=== PATIENT | female | born 1975 | race Caucasian/White ===

== ENCOUNTER 2018-08-22 00:44 | Outpatient (CLI) | payer MEDICAID, SELFPAY ==
--- NOTE | 2018-08-22 09:00 | DI.US_ITS ---
SYMPTOMS/DIAGNOSIS: LEFT BREAST PAIN, FIBROCYSTIC CHANGES, N64.4 MAMMOGRAM AND LEFT BREAST ULTRASOUND AND ADDITIONAL MAMMOGRAPHIC VIEWS, LEFT BREAST: Mammograms were interpreted according to the usual protocol including computer analysis with CAD system, tomosynthesis and C view imaging. Additional images are interpreted according to the usual protocol including tomosynthesis and 2D imaging. Mammography was performed, including additional mammographic view, left breast. The patient reports left retroareolar pain/discomfort. The breasts are of moderate density with fairly symmetrical distribution of fibroglandular tissue. There is a lobulated, well-circumscribed retroareolar mass on the left measuring about 9 mm in diameter. Ultrasound examination of the retroareolar portion of the left breast shows an approximately 7 mm in greatest diameter group of cysts or septated cyst corresponding to the mammographically identified abnormality. No solid mass identified. No intralesional vascular flow on Doppler evaluation. CONCLUSION: Retroareolar breast septated cyst or group of cysts on the left as described above. No additional significant mammographic findings. No evidence of malignancy. Routine screening examinations are suggested at yearly intervals in this age group according to the ACS/ACR guidelines. Category 2, breast density category B. MQSA ASSESSMENT OF FINDINGS: Negative with benign findings. Category 2. Patient will receive a letter notifying them of these results. BI-RADS category B. There are scattered areas of fibroglandular density.
== END 2018-08-22 01:04 ==
PROVIDERS: Visit Provider Nurse Practitioner Family
DX: N64.4 Mastodynia (principal); N60.12 Diffuse cystic mastopathy of left breast
CPT/HCPCS: 76642; 77062; 77066; G0279

== ENCOUNTER 2019-12-18 10:56 | Outpatient (CLI) | payer MEDICAID, SELFPAY ==
[2019-12-20 13:40] LABS: TB Interpretation Negative (Negative); TB1 Ag minus Nil 0.01 IU/ml
== END 2019-12-18 11:16 ==
PROVIDERS: PCP Nurse Practitioner; Visit Provider Nurse Practitioner
DX: Z11.1 Encounter for screening for respiratory tuberculosis (principal)
CPT/HCPCS: 36415; 86480

== ENCOUNTER 2020-02-06 02:53 | Outpatient (CLI) | payer MEDICAID, SELFPAY ==
[2020-02-07 09:47] LABS: HBs Antibody, Quant 37.2 mIU/mL (See Note); Hepatitis B Surface Ab Positive (See Note)
[2020-02-07 12:38] LABS: Measles IgG Antibody Positive (See Note); Mumps Antibody IgG Negative (See Note); Rubella IgG Ab (UVM) Positive (See Note); Varicella IgG Antibody Positive (See Note)
== END 2020-02-06 03:13 ==
PROVIDERS: PCP Nurse Practitioner; Visit Provider Nurse Practitioner
DX: Z11.59 Encounter for screening for other viral diseases (principal); Z01.84 Encounter for antibody response examination
CPT/HCPCS: 36415; 86706; 86787; 86735; 86762; 86765

== ENCOUNTER 2020-04-13 11:55 | Outpatient (REF) | payer MEDICAID, SELFPAY ==
--- NOTE | 2020-04-13 11:15 | PAPFT_PTH ---
PATIENT: Alexandra Carrera LOC: [facility] U#:[id number] AGE/SX: 44/F ROOM: RE04/13/[address]: DORA Calderon : 1975 BED: DIS: 04/13/2020 SPEC #: [id number] RECD: 04/13/20 13:01 STATUS: NEGIN REAlexandrea #: [id number] EDDIE: 04/13/20 11:[address]: Grace Lane DEPT: [facility] Cytology RECD BY: Soraya Avitia ENTERED: 04/13/20 13:02 SP TYPE: PAPFT OTHR DR: Zenaida Anne Tissues: 1 - CX/ENDOCX FOR PAP SMEARS Procedures: PAP THIN PREP/UVM Screening HPV DNA PROBE Comments: [id number]
== END 2020-04-13 12:15 ==
LOC: LBN 11:55
PROVIDERS: PCP Nurse Practitioner; Visit Provider Nurse Practitioner Family
DX: Z12.4 Encounter for screening for malignant neoplasm of cervix (principal); Z11.51 Encounter for screening for human papillomavirus (HPV); Z97.5 Presence of (intrauterine) contraceptive device; N88.8 Other specified noninflammatory disorders of cervix uteri
CPT/HCPCS: 88142; 87624

== ENCOUNTER 2020-05-05 07:34 | Outpatient (CLI) | payer MEDICAID, SELFPAY ==
--- NOTE | 2020-05-05 10:07 | DI.MAMMO_ITS ---
EXAM: MG MAMMO DIAGNOSTIC BI CLINICAL HISTORY: R breast pain and red lesion present for 8 months N64.4 MASTODYNIA TECHNIQUE: Mammograms were interpreted according to the usual protocol including computer analysis w [employer] system, tomosynthesis and C-view imaging. COMPARISON: FINDINGS: Breasts are of moderate density with fairly symmetrical distribution of fibroglandular tissue. No do minant mass or clumped microcalcification is identified in either breast. Current examination is com pared with previous examinations including August 2018 and there has been no gross interval change in appearance in comparison with the prior studies. IMPRESSION: No specific evidence of malignancy at this time. Routine screening examinations are suggested yearly intervals in this age group according to the ACR. BI-RADS Cat 1 - Negative Breast Density - Category B - Scattered areas of fibroglandular density
== END 2020-05-05 07:54 ==
PROVIDERS: Visit Provider Nurse Practitioner Family
DX: N64.4 Mastodynia (principal); Z12.31 Encounter for screening mammogram for malignant neoplasm of breast
CPT/HCPCS: 77062; 77066; G0279

== ENCOUNTER 2020-05-19 13:59 | Outpatient (REF) | payer MEDICAID, SELFPAY ==
[2020-05-22 15:46] LABS: SARS-CoV-2 RNA Undetected (Undetected); SARS-CoV-2 Specimen Source Nasopharynx
== END 2020-05-19 14:19 ==
LOC: NCHCN 13:59
PROVIDERS: Visit Provider Nurse Practitioner
DX: Z11.59 Encounter for screening for other viral diseases (principal)
CPT/HCPCS: U0003

== ENCOUNTER 2020-09-28 18:18 | Outpatient (REF) | payer MEDICAID, SELFPAY ==
[2020-09-30 10:06] LABS: COVID-19 RT-PCR Result NEGATIVE (Negative)
== END 2020-09-28 18:38 ==
LOC: NCHCN 18:18
PROVIDERS: PCP Nurse Practitioner Family; Visit Provider Nurse Practitioner Family
DX: Z11.59 Encounter for screening for other viral diseases (principal)
CPT/HCPCS: U0003

== ENCOUNTER 2020-10-05 18:09 | Outpatient (REF) | payer MEDICAID, SELFPAY ==
[2020-10-07 09:39] LABS: COVID-19 RT-PCR Result NEGATIVE (Negative)
== END 2020-10-05 18:29 ==
LOC: NCHCN 18:09
PROVIDERS: PCP Nurse Practitioner Family; Visit Provider Nurse Practitioner Family
DX: Z11.59 Encounter for screening for other viral diseases (principal)
CPT/HCPCS: U0003

== ENCOUNTER 2021-12-28 18:43 | Outpatient (REF) | payer MEDICAID, SELFPAY ==
[2021-12-29 15:02] LABS: Chlamydia Result Negative (Negative); GC Result Negative (Negative)
== END 2021-12-28 18:44 | disposition home or self-care (01) ==
LOC: LBN 18:43
PROVIDERS: PCP Nurse Practitioner Family; Visit Provider Nurse Practitioner Family
DX: Z11.3 Encounter for screening for infections with a predominantly sexual mode of transmission (principal)
CPT/HCPCS: 87491; 87591

== ENCOUNTER → 2022-03-10 01:38 | Outpatient (CLI) | payer MEDICAID, SELFPAY ==
--- NOTE | 2022-03-10 07:45 | DI.MAMMO_ITS ---
Exam(s) MAMMO SCREENING EXAM: MAMMO SCREENING CLINICAL HISTORY: screening. TECHNIQUE: Bilateral full field digital CC and MLO mammographic images were obtained with 3D tomosyn thesis and utilizing computer aided detection (CAD). COMPARISON: Prior mammograms were reviewed, the most recent being May 2020. Breast ultrasound pe rformed 08/22/2018 was reviewed.. FINDINGS: There are no CAD designations. There has been no significant change in the appearance and distribution of the fibroglandular tissue. Asymmetric density in the central left breast is unchanged from prior mammograms. There are no new spiculated masses nor malignant appearing microcalcification groups. There is no significant architectural distortion nor skin thickening-retraction. IMPRESSION: No radiographic evidence of malignancy. BI-RADS Category 1 - Negative Breast Density - Category B - Scattered areas of fibroglandular density Breast density Category C or D implies that the patient has dense breast tissue. Dense breast tissue can make it harder to find cancer on a mammogram. Dense breast tissue is also associated with an incr eased risk of breast cancer. This information about the result of the mammogram report was provided to the patient to raise their awareness. Use this report when you speak with the patient about their risks for breast cancer, which includes their family history. At that time, you may recommend additional screening tests (Ultrasoun d or MRI) as these tests may add significant information. A negative radiographic report should not delay biopsy if a dominant or clinically suspicious mass is present. Up to ten percent of cancers are not identified on mammography. A negative report may reinforce clinical impression. Adenosis and dense breasts may obscure an underlying neoplasm. False positive reports average 6 to 10%. Patient will receive a letter notifying them of these results.
== END ==
PROVIDERS: Visit Provider Nurse Practitioner Family
DX: Z12.31 Encounter for screening mammogram for malignant neoplasm of breast (principal)
CPT/HCPCS: 77063; 77067

== ENCOUNTER 2022-03-18 01:24 | Outpatient (CLI) | payer MEDICAID, SELFPAY ==
[2022-03-21 10:04] LABS: HBs Antibody, Quant 33.9 mIU/mL (See Note); Hepatitis B Surface Ab Positive (See Note)
[2022-03-21 10:52] LABS: Measles IgG Antibody Positive (See Note); Mumps Antibody IgG Negative (See Note); Varicella IgG Antibody Positive (See Note)
[2022-03-21 10:55] LABS: Rubella IgG Ab (UVM) Positive (See Note)
== END 2022-03-18 01:25 | disposition home or self-care (01) ==
LOC: LBO 01:25
PROVIDERS: Visit Provider Nurse Practitioner Family
DX: Z11.59 Encounter for screening for other viral diseases (principal); Z01.84 Encounter for antibody response examination; Z11.1 Encounter for screening for respiratory tuberculosis; Z00.00 Encounter for general adult medical examination without abnormal findings
CPT/HCPCS: 36415; 86706; 86787; 86480; 86735; 86762; 86765

== ENCOUNTER 2022-03-25 01:56 | Outpatient (CLI) | payer MEDICAID, SELFPAY ==
[2022-03-28 14:34] LABS: TB Interpretation Negative (Negative); TB1 Ag minus Nil 0.01 IU/ml
== END 2022-03-25 01:57 | disposition home or self-care (01) ==
LOC: LBO 01:56
PROVIDERS: Visit Provider Nurse Practitioner Family
DX: Z00.00 Encounter for general adult medical examination without abnormal findings (principal); Z11.1 Encounter for screening for respiratory tuberculosis
CPT/HCPCS: 86480

== ENCOUNTER 2022-11-16 19:02 | Emergency (ER) | payer MEDICAID, SELFPAY ==
[2022-11-16] VITALS (48 sets, daily range): BP systolic 117–178; BP diastolic 60–115; PULSE 75–130; RESP 0–40; TEMP 36.7; O2SAT 96–100
[2022-11-16] MEDS: methylPREDNISolone SUCC 125 MG VIAL IVP (19:55)
[2022-11-16] MEDS: diphenhydrAMINE 50 MG/ML VIAL 25 MG IVP (19:58)
[2022-11-16] MEDS: Famotidine 20 MG/2 ML VIAL IVP (20:00)
[2022-11-16] MEDS: Normal Saline 1,000 ML 1000 ML IV (20:02)
[2022-11-16] MEDS: EPINEPHrine 1 MG/ML AMP pres-free (20:30)
--- NOTE | 2022-11-16 20:30 | RT.EKG_ITS ---
APPROVED REPORT Exam: Resting ECG Reason for Exam: [facility] Patient Location: E HR:113 bpm ECG Measurements Heart Rate 113 AXIS [place] 130 P 52 QRSd 112 QRS 51 QT 373 T 34 QTc 511 Conclusion Sinus tachycardia. Probable left atrial enlargement. Incomplete right bundle branch block. Nonspecific T abnormalities, lateral leads
[2022-11-16] MEDS: EPINEPHrine 0.3 MG KIT (20:37)
--- NOTE | 2022-11-16 20:45 | DI.CT_ITS ---
Exam(s) CT HEAD WO EXAM: CT HEAD WO CLINICAL HISTORY: ams. TECHNIQUE: Imaging Protocol: Axial computed tomography images with coronal and sagittal reformatted images were created and reviewed COMPARISON: No exams were available for comparison FINDINGS: There are no skull fractures. There is no fluid in the visualized paranasal sinuses. There is no evidence of intracranial hemorrhage, mass effect, or shift of midline structures. There are no extra-axial fluid collections. The ventricles are not enlarged or shifted and there is no blo od within the ventricular system nor within the basal cisterns. IMPRESSION: No acute intracranial findings on this noninfused CT scan of the brain. RADIATION DOSE DELIVERED: 831.76mGy.cm Total DLP DATA REPOSITORY: All CT scans at this facility are submitted to the National Radiology Data Registry (NRDR) Dose Index Registry (DIR) with the [employer] (ACR). RADIATION OPTIMIZATION: All CT scans at this facility use at least one of these dose optimization te chniques: automated exposure control; mA and/or kV adjustment per patient size (includes targeted exa ms where dose is matched to clinical indication); or iterative reconstruction.
[2022-11-16 21:21] LABS: HCT 40.4 % (36.0-46.0); HGB 13.1 g/dL (11.2-15.7); MCH 30.6 pg (27.0-33.0); MCHC 32.4 % (32.0-36.0); MCV 94 fL (80-95); MPV 9.6 fL (8.0-11.0); Platelet Count 401 10^3/uL (130-400); RBC 4.28 10^6/uL (3.93-5.22); RDW 11.7 % (11.7-14.6); RDW-SD 40.8 fL
--- NOTE | 2022-11-16 21:30 | DI.RAD_ITS ---
Exam(s) XR CHEST 2V PA LATERAL EXAM: XR CHEST 2V PA LATERAL CLINICAL HISTORY: ams. TECHNIQUE: 2D digital imaging was performed. COMPARISON: No exams were available for comparison FINDINGS: 2 views: Heart size is normal. The mediastinum is not widened. Lungs are clear. No infiltrates nor pleural effusions. IMPRESSION: No acute pulmonary findings. DATA REPOSITORY: RADIATION DOSE DELIVERED:
[2022-11-16 21:34] LABS: ALT 18 U/L (14-59); AST 15 U/L (15-37); Albumin 3.5 g/dL (3.4-5.0); Alkaline Phosphatase 133 U/L (46-116); Anion Gap 12.5 mmol/L (3-11); BUN 9 mg/dL (7-18); Bilirubin, Total 0.5 mg/dL (0.2-1.0); CO2 22.5 mmol/L (21.0-32.0); CREATININE 0.7 mg/dL (0.55-1.02); Calcium 8.6 mg/dL (8.5-10.1); Chloride 102 mmol/L (98-107); Estimated GFR 108.62 (mL/min/1.73m2); Glucose 212 mg/dL (74-106); Sodium 137 mmol/L (136-145); Total Protein 6.9 g/dL (6.4-8.2)
[2022-11-16 21:39] LABS: Troponin I < 50 ng/L (<or=60)
[2022-11-16 21:51] LABS: Abs Immature Grans 0.12 10^3/uL (0.0-0.06); Absolute Basophil Count 0.07 10^3/uL (0.0-0.2); Absolute Eosinophil Count 0.05 10^3/uL (0.0-0.7); Absolute Lymphocyte Count 3.16 10^3/uL (1.2-3.4); Absolute Monocyte Count 0.94 10^3/uL (0.1-0.8); Absolute Neutrophil Count 14.27 10^3/uL (1.2-6.7); Basophils % 0.4; Eosinophils % 0.3; Immature Grans % 0.6; Monocytes % 5.1; Neutrophils % 76.6
[2022-11-16 22:01] LABS: Potassium 2.5 mmol/L (3.5-5.1)
--- NOTE | 2022-11-16 22:01 | DI.VRAD_ITS ---
PROCEDURE INFORMATION: Exam: CT Head Without Contrast Exam date and time: 11/16/2022 9:51 PM Age: 47 years old Clinical indication: Altered mental status/memory loss; Patient HX: AMS TECHNIQUE: Imaging protocol: Computed tomography of the head without contrast. COMPARISON: No relevant prior studies available. FINDINGS: Brain: Mild volume loss No hemorrhage. Unremarkable white matter. No mass effect. Cerebral ventricles: No ventriculomegaly. Paranasal sinuses: Visualized sinuses are unremarkable. No fluid levels. Mastoid air cells: Visualized mastoid air cells are well aerated. Bones/joints: Unremarkable. No acute fracture. Soft tissues: Unremarkable. IMPRESSION: No acute intracranial abnormality. Dictated and Authenticated by: Krish Fuller MD. Ordering:CAMERON Lira MD
--- NOTE | 2022-11-16 22:11 | DI.VRAD_ITS ---
PROCEDURE INFORMATION: Exam: XR Chest Exam date and time: 11/16/2022 9:56 PM Age: 47 years old Clinical indication: Other: AMS TECHNIQUE: Imaging protocol: Radiologic exam of the chest. Views: 2 views. COMPARISON: No relevant prior studies available. FINDINGS: Lungs: Chronic interstitial prominence. No consolidation. Pleural spaces: No pleural effusion. No pneumothorax. Heart/Mediastinum: Mildly tortuous aorta. No cardiomegaly. Bones/joints: Unremarkable. IMPRESSION: No acute findings. Dictated and Authenticated by: Krish Fuller MD. Ordering:CAMERON Lira MD
[2022-11-16 22:26] LABS: Magnesium 1.6 mg/dL (1.8-2.4)
[2022-11-16] MEDS: POTASSIUM CHLORIDE 20 MEQ/100 ML BAG 50 MEQ IVPB (22:26)
[2022-11-16 22:37] LABS: Bilirubin Negative (Negative); Blood Small (Negative); Clarity Clear (Clear); Glucose 500 mg/dL (Negative); Ketones Negative (Negative); Leukocyte Esterase Negative (Negative); Nitrite Negative (Negative); Specific Gravity 1.015 (1.005-1.025); Urobilinogen 0.2 EU/dL (Up TO 0.2); pH 5.5 (5-8)
[2022-11-16 22:38] LABS: Bacteria Negative HPF (Negative); Casts Negative LPF (Negative); Crystals Negative HPF (Negative); Epithelial Cells Few HPF (Negative); Mucus Negative (Negative); Other Cells Negative (Negative); WBC 0-2 HPF (0-5)
[2022-11-16 22:39] LABS: C & S Indicated? No
[2022-11-16 23:00] LABS: *AMPHETAMINES SCREEN URINE Negative (Negative); *BARBITURATES SCREEN URINE Negative (Negative); *BENZODIAZEPINES SCREEN URINE Negative (Negative); Cannabinoids THC Positive (Negative); Cocaine Screen,Urine Negative (Negative); METHADONE URINE SCREEN Negative (Negative); OPIATES URINE SCREEN Negative (Negative)
[2022-11-16 23:09] LABS: Tricyclic Antidepressants Negative (Negative)
--- NOTE | 2022-11-16 23:37 | W.ED.GENAD ---
Discharge Plan Disposition Patient Disposition: Home Condition: Improving Discharge Details Clinical Impression: Hypokalemia, Adverse drug effect Primary Care Provider: None,None ED Provider: Justin Cabrera Home Meds and New Rx's Prescriptions: New potassium chloride 20 mEq tablet,ER particles/crystals 40 meq PO DAILY Qty: 10 0RF epinephrine 0.3 mg/0.3 mL auto-injector 0.3 ml subcut Q5-15M PRNQty: 2 0RF Rx Instructions: do not exceed 2 doses per episode prednisone 20 mg tablet 40 mg PO ONCE Qty: 8 0RF Continued metronidazole 500 mg tablet 500 mg PO BID Qty: 14 0RF Mirena 1 EACH intrauterine device 1 ea Intrauterine Discharge Instructions Instructions: Hypokalemia (ED) Additional Instructions: At this time we are uncertain as to the exact cause of your presentation, I recommend taking prednisone daily starting tomorrow and Claritin daily Take the potassium as prescribed, your next dose should be in the morning tomorrow. These prescriptions were called in/faxed to [facility]. You will need to follow-up with your doctor, I am unsure as to why you are potassium was low, this will need to be checked closely in the outpatient setting and I recommend taking multivitamin daily May increase potassium containing foods in your diet such as bananas, potassium's, tree nuts like cashews and almonds Should you develop new or worsening complaints, please return to the emergency department, please do not take any more of the CBD tablets that you took today Return earlier should you develop new or worsening complaints Discharge Data Discharge Date/Time-TO BE ENTERED AT DEPARTURE: 11/17/22 03:09 Medical Decision Making <JOSEPH Haile - Last Filed: 11/17/22 17:48> This 47-year-old female presents with concern initially for allergic reaction, she did not exhibit signs of anaphylaxis initially She was ordered Benadryl, Solu-Medrol, and Pepcid, she was tolerating this well when she started complaining of some paresthesias to her extremities, I did not see any visible rashes or lesions I was called back into the room as patient had acute alteration in mental status is was becoming less responsive although her vitals are stable and she was maintaining her airway, she was stating that she felt like she could not swallow Secondary to urticarial rash on her upper extremities and mottled rash on her upper and lower extremities, I did order a dose of subcu epinephrine via EpiPen, she became more responsive although vitals did not change She received a second dose that she had an additional episode and her mentation improved again She subsequently was reevaluated and developed an additional episode and received a third dose of epinephrine with resolution of symptoms She is not acting symptomatically improved, her glucose was checked and 110 Her exam is curious and while her vitals and exam were not necessarily consistent initially with anaphylaxis, secondary to the acute mentation change she did receive 3 doses of epinephrine, she is now at baseline and feeling improvement Her potassium is quite low, 2.5, this is being supplemented We will repeat EKG, observe for several hours, she will complete her potassium at 2 AM Airway patent, vital stable CT head does not show evidence of acute abnormality per radiology interpretation and my review <Justin Cabrera MD - Last Filed: 11/17/22 03:02> Medical Records Medical records reviewed: Yes I reviewed the patient's medical records. Medical records narrative: Signout received from Ms. Black. Records reviewed. Patient observed and her potassium was supplemented. Her mental status completely cleared and she felt subjectively better. Patient's EKG improved with the correction of the QTc to normal. Repeat potassium normalized at 3.9. Patient stable and appropriate for discharge HPI <JOSEPH Haile - Last Filed: 11/17/22 17:48> General Date/Time Provider Initiated Documentation: 11/16/22 19:40. HPI Narrative: This 47-year-old female presents with report of taking a [place] CBD tablet and feeling like she cannot breathe or swallow. 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 This is approximately in her and a half prior to arrival. She denies any chest pain. She states she feels mildly short of breath. She denies any fever or chills. She states she is having slight difficulty swallowing. She denies any rashes. She does not have an EpiPen for her history of anaphylaxis. She states she has paresthesias in her arms and legs per patient. Related Data Home Medications Medication Instructions Recorded Confirmed levonorgestrel 21 mcg/24 hours (8 1 ea intrauterine 10/25/13 07/13/20 yrs) 52 mg intrauterine device (Mirena) metronidazole 500 mg tablet 500 mg PO BID #14 tabs 02/08/22 02/08/22 epinephrine 0.3 mg/0.3 mL 0.3 ml subcut Q5-15M PRN #2 ea 11/17/22 injection, auto-injector potassium chloride 20 mEq 40 meq PO DAILY #10 tabs 11/17/22 tablet,extended release(part/cryst) prednisone 20 mg tablet 40 mg PO ONCE #8 tabs 11/17/22 Previous Rx's Medication Instructions Recorded metronidazole 500 mg tablet 500 mg PO BID #14 tabs 02/08/22 epinephrine 0.3 mg/0.3 mL 0.3 ml subcut Q5-15M PRN #2 ea 11/17/22 injection, auto-injector potassium chloride 20 mEq 40 meq PO DAILY #10 tabs 11/17/22 tablet,extended release(part/cryst) prednisone 20 mg tablet 40 mg PO ONCE #8 tabs 11/17/22 Allergies Allergy/AdvReac Type Severity Reaction Status Date / Time amoxicillin [Amoxicillin] Allergy hives Verified 02/08/22 09:13 Carbapenems Allergy Verified 02/08/22 09:13 Cephalosporins Allergy Verified 02/08/22 09:13 Penicillins Allergy facial Verified 02/08/22 09:13 swelling Dairy Allergy Severe Anaphylaxis Uncoded 02/08/22 09:13 General Stated Complaint: Allergic CHARLES: 3 PFSH <JOSEPH Haile - Last Filed: 11/17/22 17:48> All Active Problems (Updated 11/17/22 @ 00:22 by JOSEPH aHile) Hypokalemia (Acute) Adverse drug effect (Acute) IUD surveillance (Acute 08/14/14) Surgical History (Updated 07/18/18 @ 14:35 by [employer]) section for twins Diagnostic Laproscopy (~1999) for Dyspareunia Family History Mother Well adult Social History (Updated 07/31/18 @ 10:23 by Lilia Fernandez LPN) Smoking/Tobacco Use Status: Former Tobacco Use Smoking risk assessment performed?: Yes Alcohol Intake: current Alcohol Intake frequency: a few times a month Drug use: Never Substance use type: does not use Seatbelt use: always Do you feel safe in your relationship?: Yes Female Reproductive History Menstrual control method: progestin IUCD (No menses with IUD (04/2015)) Exam <JOSEPH Haile - Last Filed: 11/17/22 17:48> Const General: cooperative and anxious Orientation: alert and oriented x3 HENMT Other: Uvula midline, oropharynx patent, no stridor Eyes Pupils: PERRL Neck Other: No stridor Resp Effort & Inspection: normal respiratory effort Auscultation: clear to auscultation bilaterally Cardio Rate: regular rate Rhythm: regular rhythm GI Inspection: normal to inspection Auscultation: normal bowel sounds Skin General skin exam: no rashes or lesions noted Neuro General: patient alert and patient oriented x3 Course <JOSEPH Haile - Last Filed: 11/17/22 17:48> Vital Signs Vital signs: Vital Signs Temperature 36.7 C 11/16/22 19:09 Pulse 113 H 11/16/22 19:09 Respiratory Rate 28 H 11/16/22 19:09 Blood Pressure 165/93 H 11/16/22 19:09 Pulse Oximetry 99 11/16/22 19:09 Temperature 36.7 C 11/16/22 19:09 Pulse 110 H 11/16/22 22:24 Pulse 104 H 11/16/22 22:30 Respiratory Rate 15 11/16/22 22:30 Respiratory Effort Normal 11/16/22 19:05 Respiratory Pattern Tachypnea 11/16/22 19:05 Blood Pressure 134/69 11/16/22 22:24 Blood Pressure Mean 84 11/16/22 22:24 Blood Pressure Position Sitting 11/16/22 19:09 Pulse Oximetry 100 11/16/22 22:30 Lab/Test Results Lab/Test Results: Laboratory Tests Range/Units 11/16/22 11/16/22 11/16/22 21:11 21:11 21:11 WBC (4.4-10.8) 10^3/uL 19.00 H RBC (3.93-5.22) 10^6/uL 4.28 Hgb (11.2-15.7) g/dL 13.1 Hct (36.0-46.0) % 40.4 MCV (80-95) fL 94 MCH (27.0-33.0) pg 30.6 MCHC (32.0-36.0) % 32.4 RDW (11.7-14.6) % 11.7 Plt Count (130-400) 10^3/uL 401 H MPV (8.0-11.0) fL 9.6 Immature Gran % Neutrophils % Lymphocytes % Monocytes % Eosinophils % Basophils % Absolute Neutrophils (1.2-6.7) 10^3/uL Absolute Lymphocytes (1.2-3.4) 10^3/uL Absolute Monocytes (0.1-0.8) 10^3/uL Absolute Eosinophils (0.0-0.7) 10^3/uL Absolute Basophils (0.0-0.2) 10^3/uL Sodium (136-145) mmol/L 137 Potassium (3.5-5.1) mmol/L 2.5 L* Chloride (98-107) mmol/L 102 Carbon Dioxide (21.0-32.0) mmol/L 22.5 Anion Gap (3-11) mmol/L 12.5 H BUN (7-18) mg/dL 9 Creatinine (0.55-1.02) mg/dL 0.7 Est GFR (CKD-EPI 2020) (mL/min/1.73m2) 108.62 Glucose (74-106) mg/dL 212 H Calcium (8.5-10.1) mg/dL 8.6 Magnesium (1.8-2.4) mg/dL Total Bilirubin (0.2-1.0) mg/dL 0.5 AST (15-37) U/L 15 ALT (14-59) U/L 18 Alkaline Phosphatase (46-116) U/L 133 H Troponin I (<or=60) ng/L < 50 Total Protein (6.4-8.2) g/dL 6.9 Albumin (3.4-5.0) g/dL 3.5 Urine Color (Yellow) Urine Clarity (Clear) Urine pH (5-8) Ur Specific [place] (1.005-1.025) Urine Protein (Negative) mg/dL Urine Ketones (Negative) mg/dL Urine Blood (Negative) Urine Nitrite (Negative) Urine Bilirubin (Negative) Urine Urobilinogen (Up TO 0.2) EU/dL Ur Leukocyte Esterase (Negative) Urine RBC (0-2) HPF Urine WBC (0-5) HPF Ur Epithelial Cells (Negative) HPF Urine Crystals (Negative) HPF Urine Bacteria (Negative) HPF Urine Casts (Negative) LPF Urine Mucus (Negative) Urine Other (Negative) Ur Culture Indicated? Urine Glucose (Negative) mg/dL Urine Opiates Screen (Negative) Urine Methadone Screen (Negative) Ur Barbiturates Screen (Negative) Ur Tricyclics Screen (Negative) Ur Amphetamines Screen (Negative) U Benzodiazepines Scrn (Negative) Urine Cocaine Screen (Negative) Ur THC Screen (Negative) Range/Units 11/16/22 11/16/22 11/16/22 21:11 21:11 22:25 WBC (4.4-10.8) 10^3/uL RBC (3.93-5.22) 10^6/uL Hgb (11.2-15.7) g/dL Hct (36.0-46.0) % MCV (80-95) fL MCH (27.0-33.0) pg MCHC (32.0-36.0) % RDW (11.7-14.6) % Plt Count (130-400) 10^3/uL MPV (8.0-11.0) fL Immature Gran % 0.6 Neutrophils % 76.6 Lymphocytes % 17.0 Monocytes % 5.1 Eosinophils % 0.3 Basophils % 0.4 Absolute Neutrophils (1.2-6.7) 10^3/uL 14.27 H Absolute Lymphocytes (1.2-3.4) 10^3/uL 3.16 Absolute Monocytes (0.1-0.8) 10^3/uL 0.94 H Absolute Eosinophils (0.0-0.7) 10^3/uL 0.05 Absolute Basophils (0.0-0.2) 10^3/uL 0.07 Sodium (136-145) mmol/L Potassium (3.5-5.1) mmol/L Chloride (98-107) mmol/L Carbon Dioxide (21.0-32.0) mmol/L Anion Gap (3-11) mmol/L BUN (7-18) mg/dL Creatinine (0.55-1.02) mg/dL Est GFR (CKD-EPI 2020) (mL/min/1.73m2) Glucose (74-106) mg/dL Calcium (8.5-10.1) mg/dL Magnesium (1.8-2.4) mg/dL 1.6 L Total Bilirubin (0.2-1.0) mg/dL AST (15-37) U/L ALT (14-59) U/L Alkaline Phosphatase (46-116) U/L Troponin I (<or=60) ng/L Total Protein (6.4-8.2) g/dL Albumin (3.4-5.0) g/dL Urine Color (Yellow) Urine Clarity (Clear) Urine pH (5-8) Ur Specific [place] (1.005-1.025) Urine Protein (Negative) mg/dL Urine Ketones (Negative) mg/dL Urine Blood (Negative) Urine Nitrite (Negative) Urine Bilirubin (Negative) Urine Urobilinogen (Up TO 0.2) EU/dL Ur Leukocyte Esterase (Negative) Urine RBC (0-2) HPF Urine WBC (0-5) HPF Ur Epithelial Cells (Negative) HPF Urine Crystals (Negative) HPF Urine Bacteria (Negative) HPF Urine Casts (Negative) LPF Urine Mucus (Negative) Urine Other (Negative) Ur Culture Indicated? Urine Glucose (Negative) mg/dL Urine Opiates Screen (Negative) Negative Urine Methadone Screen (Negative) Negative Ur Barbiturates Screen (Negative) Negative Ur Tricyclics Screen (Negative) Negative Ur Amphetamines Screen (Negative) Negative U Benzodiazepines Scrn (Negative) Negative Urine Cocaine Screen (Negative) Negative Ur THC Screen (Negative) Positive A Range/Units 11/16/22 22:25 WBC (4.4-10.8) 10^3/uL RBC (3.93-5.22) 10^6/uL Hgb (11.2-15.7) g/dL Hct (36.0-46.0) % MCV (80-95) fL MCH (27.0-33.0) pg MCHC (32.0-36.0) % RDW (11.7-14.6) % Plt Count (130-400) 10^3/uL MPV (8.0-11.0) fL Immature Gran % Neutrophils % Lymphocytes % Monocytes % Eosinophils % Basophils % Absolute Neutrophils (1.2-6.7) 10^3/uL Absolute Lymphocytes (1.2-3.4) 10^3/uL Absolute Monocytes (0.1-0.8) 10^3/uL Absolute Eosinophils (0.0-0.7) 10^3/uL Absolute Basophils (0.0-0.2) 10^3/uL Sodium (136-145) mmol/L Potassium (3.5-5.1) mmol/L Chloride (98-107) mmol/L Carbon Dioxide (21.0-32.0) mmol/L Anion Gap (3-11) mmol/L BUN (7-18) mg/dL Creatinine (0.55-1.02) mg/dL Est GFR (CKD-EPI 2020) (mL/min/1.73m2) Glucose (74-106) mg/dL Calcium (8.5-10.1) mg/dL Magnesium (1.8-2.4) mg/dL Total Bilirubin (0.2-1.0) mg/dL AST (15-37) U/L ALT (14-59) U/L Alkaline Phosphatase (46-116) U/L Troponin I (<or=60) ng/L Total Protein (6.4-8.2) g/dL Albumin (3.4-5.0) g/dL Urine Color (Yellow) Yellow Urine Clarity (Clear) Clear Urine pH (5-8) 5.5 Ur Specific [place] (1.005-1.025) 1.015 Urine Protein (Negative) mg/dL Negative Urine Ketones (Negative) mg/dL Negative Urine Blood (Negative) Small H Urine Nitrite (Negative) Negative Urine Bilirubin (Negative) Negative Urine Urobilinogen (Up TO 0.2) EU/dL 0.2 Ur Leukocyte Esterase (Negative) Negative Urine RBC (0-2) HPF 5-10 H Urine WBC (0-5) HPF 0-2 Ur Epithelial Cells (Negative) HPF Few Urine Crystals (Negative) HPF Negative Urine Bacteria (Negative) HPF Negative Urine Casts (Negative) LPF Negative Urine Mucus (Negative) Negative Urine Other (Negative) Negative Ur Culture Indicated? No Urine Glucose (Negative) mg/dL 500 H Urine Opiates Screen (Negative) Urine Methadone Screen (Negative) Ur Barbiturates Screen (Negative) Ur Tricyclics Screen (Negative) Ur Amphetamines Screen (Negative) U Benzodiazepines Scrn (Negative) Urine Cocaine Screen (Negative) Ur THC Screen (Negative) Sign Out <JOSEPH Haile - Last Filed: 11/17/22 17:48> Sign Out Data: Sign Out Comment: Patient pending repeat EKG at 2 AM, completion of 40 mEq of IV potassium and continued observation Last updated by Soraya Black PA at 11/17/22 00:26
[2022-11-17] VITALS (33 sets, daily range): BP systolic 89–154; BP diastolic 60–79; PULSE 86–109; RESP 12–26; O2SAT 92–98
--- NOTE | 2022-11-17 00:15 | RT.EKG_ITS ---
APPROVED REPORT Exam: Resting ECG Reason for Exam: hypokalemia Patient Location: E HR:101 bpm ECG Measurements Heart Rate [address] 172 P 38 QRSd 102 QRS 32 QT 356 T 14 QTc 461 Conclusion Sinus tachycardia...rate> 99
[2022-11-17] MEDS: POTASSIUM CHLORIDE 20 MEQ/100 ML BAG 50 MEQ IVPB (00:37)
[2022-11-17 02:53] LABS: Potassium 3.9 mmol/L (3.5-5.1)
== END 2022-11-17 03:09 | disposition home or self-care (01) ==
PROVIDERS: Physician Assistant; Emergency Provider Emergency Medicine
DX: L50.9 Urticaria, unspecified (principal); T40.725A Adverse effect of synthetic cannabinoids, initial encounter; E87.6 Hypokalemia
CPT/HCPCS: 36416; 80053; 80307; 82962; 85027; 93005; 96361; 96365; 96366; 96372; 96375; 99284; 70450; 71046; 81003; 81015; 83735; 84132; 84484; 85007; 93010; 99285; J0171; J1200; J2930; J3480

== ENCOUNTER 2023-04-17 06:05 | Emergency (ER) | payer MEDICAID, SELFPAY ==
[2023-04-17] VITALS (32 sets, daily range): BP systolic 97–118; BP diastolic 55–81; PULSE 72–110; RESP 8–22; TEMP 36.4–36.8; O2SAT 91–100
--- NOTE | 2023-04-17 06:00 | RT.EKG_ITS ---
APPROVED REPORT Exam: Resting ECG Reason for Exam: short of breath Patient Location: E HR:84 bpm ECG Measurements Heart Rate 84 AXIS [place] 168 P 52 QRSd 103 QRS 40 QT 381 T 31 QTc 452 Conclusion Sinus rhythm...normal P axis, V-rate 60- 99 No change vs 11/24
--- NOTE | 2023-04-17 06:24 | ED.GENADUL_ITS ---
Discharge Plan Disposition Patient Disposition: Home Condition: Improving Discharge Details Clinical Impression: Viral upper respiratory tract infection with cough Primary Care Provider: None,None ED Provider: Annette Ochoa Home Meds and New Rx's Prescriptions: New ondansetron 8 mg tablet,disintegrating 8 mg PO Q8H PRN (Reason: nausea and vomiting) Qty: 15 0RF Discontinued prednisone 20 mg tablet 40 mg PO ONCE Qty: 8 0RF No Action metronidazole 500 mg tablet 500 mg PO BID Qty: 14 0RF Mirena 1 EACH intrauterine device 1 ea Intrauterine potassium chloride 20 mEq tablet,ER particles/crystals 40 meq PO DAILY Qty: 10 0RF epinephrine 0.3 mg/0.3 mL auto-injector 0.3 ml subcut Q5-15M PRNQty: 2 0RF Rx Instructions: do not exceed 2 doses per episode Discharge Instructions Instructions: Upper Respiratory Infection (ED), Acute Cough (ED) Additional Instructions: Use the albuterol inhaler every 4 hours and as needed for cough. Buy Mucinex DM, Zyrtec, and pseudoephedrine for symptom relief. Continue your Tylenol and or ibuprofen as needed for fever and aches. Rest and drink plenty of fluids. Return to ED for severe chest pain or difficulty breathing, weakness, any other concerns. Medical Decision Making We will do a sepsis work-up on the patient. 0800 Patient has elevated WBC but acceptable VBG and lactate. Her chest x-ray is negative. Flu but is negative. She has been updated on all of these results and will be sent home with symptomatic and supportive care. She will return to ED for severe chest pain, difficulty breathing, any other concerns. She is feeling better and her nausea is gone. Medical Records Medical records reviewed: Yes I reviewed the patient's medical records. Imaging Data Radiologic Study: Imaging: X-Ray My impression: NAD Radiologist's impression: NAD Lab Data Lab results reviewed: Yes I reviewed the patient's lab results. Lab results narrative: Patient's WBC is 17.5 thousand with 82 polys and 11 lymphs. VBG is 7.4 /. Potassium 3.3. Alk phos 131, unchanged. Lactate 1.6. COVID pending. Labs: Fluvid negative. ECG Data Attestation: I personally reviewed and interpreted this ECG (s) as follows: (NSR 85, normal intervals, no ST-T changes, artifact present, no change vs 11/24) HPI General Date/Time Provider Initiated Documentation: 04/17/23 06:22 . 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 She says everything hit pretty hard. She says she has congestion, runny nose, bad cough productive of greenish sputum, sore throat, off-and-on headache, possible swollen glands, nausea, and chest pain with cough. The patient has been using Tylenol and ibuprofen with her last dose of ibuprofen at 4 AM. Declines additional Tylenol at this time. She has not been taking anything for her cold-like symptoms. We talked about Mucinex DM, Zyrtec, and pseudoephedrine. She denies shortness of breath but states that when she lies flat she begins coughing and then has to sit up again. Sometimes if she gets into a coughing spasm it takes her breath away. She only has chest pain with cough. She denies abdominal pain, diarrhea, or dysuria. Related Data Home Medications Medication Instructions Recorded Confirmed levonorgestrel 21 mcg/24 hours (8 1 ea intrauterine 07/26/13 04/13/20 yrs) 52 mg intrauterine device (Mirena) metronidazole 500 mg tablet 500 mg PO BID #14 tabs 02/08/22 04/17/23 epinephrine 0.3 mg/0.3 mL 0.3 ml subcut Q5-15M PRN #2 ea 11/17/22 04/17/23 injection, auto-injector potassium chloride 20 mEq 40 meq PO DAILY #10 tabs 11/17/22 04/17/23 tablet,extended release(part/cryst) ondansetron 8 mg disintegrating 8 mg PO Q8H PRN nausea and 04/17/23 tablet vomiting #15 tabs Previous Rx's Medication Instructions Recorded metronidazole 500 mg tablet 500 mg PO BID #14 tabs 02/08/22 epinephrine 0.3 mg/0.3 mL 0.3 ml subcut Q5-15M PRN #2 ea 11/17/22 injection, auto-injector potassium chloride 20 mEq 40 meq PO DAILY #10 tabs 11/17/22 tablet,extended release(part/cryst) ondansetron 8 mg disintegrating 8 mg PO Q8H PRN nausea and 04/17/23 tablet vomiting #15 tabs Allergies Allergy/AdvReac Type Severity Reaction Status Date / Time amoxicillin [Amoxicillin] Allergy hives Verified 02/08/22 09:13 Carbapenems Allergy Verified 02/08/22 09:13 Cephalosporins Allergy Verified 02/08/22 09:13 Penicillins Allergy facial Verified 02/08/22 09:13 swelling Dairy Allergy Severe Anaphylaxis Uncoded 02/08/22 09:13 General Stated Complaint: RespSymp CHARLES: 3 Review of Systems Constitutional Constitutional: Denies chills, Reports fever(s) (to 102.5 at home), Reports headache(s) and Denies weakness Eyes Eyes: Denies diplopia and Reports other (no redness) ENT Ears, Nose, Mouth, and Throat: Reports otalgia, Reports headache(s), Reports nasal congestion, Reports nasal discharge, Denies neck pain and Reports sore throat Cardiovascular Cardiovascular: Reports chest pain (with cough only), Denies palpitations and Denies dyspnea Respiratory Respiratory: Reports cough and Denies dyspnea Gastrointestinal Gastrointestinal: Denies abdominal pain, Denies diarrhea, Reports nausea and Denies vomiting Genitourinary Genitourinary: Denies dysuria Musculoskeletal Musculoskeletal: Denies myalgias, Denies muscle weakness, Denies neck pain, Denies numbness and Reports other (edema) Integumentary/Breasts Skin/Breast: Denies change in pigmentation and Denies rash Neurologic Neurologic: Reports headache(s), Denies numbness and Denies weakness Endocrine Endocrine: Denies palpitations PFSH All Active Problems (Updated 04/17/23 @ 08:00 by Annette Ochoa MD) Viral upper respiratory tract infection with cough (Acute) IUD surveillance (Acute 08/14/14) Surgical History section for twins Diagnostic Laproscopy (~1999) for Dyspareunia Family History Mother Well adult Social History Smoking/Tobacco Use Status: Former Tobacco Use Smoking risk assessment performed?: Yes Alcohol Intake: current Alcohol Intake frequency: a few times a month Drug use: Never Substance use type: does not use Housing: house Seatbelt use: always Do you feel safe at home: Yes Do you feel safe in your relationship?: Yes Female Reproductive History Menstrual control method: progestin IUCD (No menses with IUD (04/2015)) Exam Const General: no acute distress, well developed and well groomed Nutritional Appearance: well nourished Orientation: alert and oriented x3 Other: Sounds congested, looks like she does not feel well HENMT Head: normocephalic and atraumatic Ears: external ears normal Mouth: oropharynx normal and moist mucous membranes Throat: posterior oropharynx normal Eyes Conjunctivae: conjunctivae normal Neck Neck: full ROM and supple Chest Chest: normal inspection of the chest Resp Effort & Inspection: normal respiratory effort and able to speak in complete sentences Auscultation: clear to auscultation bilaterally Cardio Rate: regular rate Rhythm: regular rhythm Heart Sounds: no murmurs and no rubs GI Inspection: normal to inspection Palpation: soft, nontender and other (non distended) Auscultation: normal bowel sounds Skin General skin exam: no rashes or lesions noted and other (pink, warm, dry) Neuro General: patient alert, patient awake and patient oriented x3 Speech: speech normal Motor: other (HELM) Sensory Exam: no sensory deficits noted Extrem General: normal to inspection, full ROM and pedal edema present Psych Mental Status: mental status grossly normal Speech and Movement: speech and movement normal Affect: normal affect Course Vital Signs Vital signs: Vital Signs Temperature 36.8 C 04/17/23 06:08 Pulse 103 H 04/17/23 06:08 Respiratory Rate 22 04/17/23 06:08 Blood Pressure 116/72 04/17/23 06:08 Pulse Oximetry 98 04/17/23 06:08 Temperature 36.8 C 04/17/23 06:08 Temperature Source Oral 04/17/23 06:08 Pulse 103 H 04/17/23 06:08 Respiratory Rate 22 04/17/23 06:08 Respiratory Effort Short of Breath 04/17/23 06:13 Blood Pressure 116/72 04/17/23 06:08 Blood Pressure Position Sitting 04/17/23 06:08 Pulse Oximetry 98 04/17/23 06:08 Oxygen Delivery Method Room Air 04/17/23 06:08 Oxygen Flow Rate 0 04/17/23 06:08 Pain Level 4 04/17/23 06:08
[2023-04-17 06:39] LABS: BE (Venous) 0 mmol/L (-2-3); HCO3 (Venous) 24 mmol/L (23-28); O2 Sat (Venous) 89 %; TCO2 (Venous) 21 mmol/L (24-29); pCO2 (Venous) 34 mmHg (41-51); pH (Venous) 7.46 (7.31-7.41); pO2 (Venous) 51 mmHg
[2023-04-17 06:42] LABS: Lactate 1.6 mmol/L (0.6-1.4)
[2023-04-17 06:43] LABS: Abs Immature Grans 0.08 10^3/uL (0.0-0.06); Absolute Lymphocyte Count 1.91 10^3/uL (1.2-3.4); Basophils % 0.3; HCT 43.3 % (36.0-46.0); HGB 14.5 g/dL (11.2-15.7); Immature Grans % 0.5; Lymphocytes % 10.9; MCH 30.6 pg (27.0-33.0); MCHC 33.5 % (32.0-36.0); MCV 91 fL (80-95); MPV 9.5 fL (8.0-11.0); Monocytes % 5.4; Neutrophils % 81.9; Platelet Count 351 10^3/uL (130-400); RBC 4.74 10^6/uL (3.93-5.22); RDW 11.9 % (11.7-14.6); RDW-SD 40.1 fL; WBC 17.51 10^3/uL (4.4-10.8)
[2023-04-17 06:47] LABS: Absolute Basophil Count 0.05 10^3/uL (0.0-0.2); Absolute Eosinophil Count 0.18 10^3/uL (0.0-0.7); Absolute Monocyte Count 0.95 10^3/uL (0.1-0.8); Absolute Neutrophil Count 14.34 10^3/uL (1.2-6.7)
[2023-04-17] MEDS: Ondansetron 4 MG/2 ML VIAL 8 MG IVP (06:51)
[2023-04-17] MEDS: Normal Saline 1,000 ML 1000 ML IV (06:51)
[2023-04-17 06:57] LABS: ALT 22 U/L (14-59); AST 12 U/L (15-37); Albumin 3.4 g/dL (3.4-5.0); Alkaline Phosphatase 131 U/L (46-116); Anion Gap 9.5 mmol/L (3-11); BUN 5 mg/dL (7-18); Bilirubin, Total 0.8 mg/dL (0.2-1.0); CO2 24.5 mmol/L (21.0-32.0); CREATININE 0.7 mg/dL (0.55-1.02); Calcium 8.9 mg/dL (8.5-10.1); Chloride 105 mmol/L (98-107); Estimated GFR 108.62 (mL/min/1.73m2); Glucose 100 mg/dL (74-106); Magnesium 1.9 mg/dL (1.8-2.4); Potassium 3.3 mmol/L (3.5-5.1); Sodium 139 mmol/L (136-145); Total Protein 7.6 g/dL (6.4-8.2)
--- NOTE | 2023-04-17 07:21 | DI.RAD_ITS ---
Exam(s) XR PORTABLE CHEST AP EXAM: XR PORTABLE CHEST AP CLINICAL HISTORY: fever, cough TECHNIQUE: 2D digital imaging was performed. COMPARISON: 16 November 2022 FINDINGS: Leads overlie the chest. LUNGS: Clear. No pleural abnormality seen. HEART: Normal size. AORTA: Normal diameter. BONES: Unremarkable for age. Soft tissues: Unremarkable. IMPRESSION: No acute findings. DATA REPOSITORY: RADIATION DOSE DELIVERED:
[2023-04-17 07:27] LABS: COVID-19 PCR Negative (Negative); Influenza A PCR Negative (Negative); Influenza B PCR Negative (Negative); RSV PCR Negative (Negative)
[2023-04-17 07:29] LABS: Source Nasopharynx
--- NOTE | 2023-04-17 07:45 | DI.VRAD_ITS ---
PROCEDURE INFORMATION: Exam: XR Chest Exam date and time: 04/17/2023 7:17 AM Age: 47 years old Clinical indication: Cough and shortness of breath; Patient HX: Fever, cough TECHNIQUE: Imaging protocol: Radiologic exam of the chest. Views: 1 view. COMPARISON: CR XR CHEST 2V PA LATERAL 11/16/2022 9:56 PM FINDINGS: Lungs: The lungs are clear and well aerated bilaterally. There is no consolidation, infiltrate, or pulmonary edema. The pulmonary vasculature is normal in caliber. Pleural spaces: Unremarkable. No pleural effusion or pneumothorax. Heart/Mediastinum: Heart size and cardiomediastinal contours are normal. Bones/joints: Unremarkable. IMPRESSION: No active disease in the chest. Dictated and Authenticated by: Moni Villarreal MD. Ordering:ANGELICA Bryant MD
[2023-04-17] MEDS: POTASSIUM CHLORIDE 20 MEQ/100 ML BAG 50 MEQ IVPB (07:53)
[2023-04-17] MEDS: Normal Saline 1,000 ML 2700 ML IV (07:53)
[2023-04-17] MEDS: Albuterol 2.5 MG/3 ML INH SOLN VIAL UPD (08:02)
[2023-04-17] MEDS: Inhaler, Assist Device 1 EACH MC (08:20)
[2023-04-17] MEDS: Albuterol HFA 8 GM 60 PUFF INH IH (08:20)
[2023-04-17] MEDS: Ondansetron O.D.T. 4 MG TABEF, 3 TABS/BTL PO (10:01)
== END 2023-04-17 10:35 | disposition home or self-care (01) ==
PROVIDERS: Emergency Provider Emergency Medicine
DX: J06.9 Acute upper respiratory infection, unspecified (principal); B97.89 Other viral agents as the cause of diseases classified elsewhere; Z87.891 Personal history of nicotine dependence; Z20.822 Contact with and (suspected) exposure to COVID-19
CPT/HCPCS: 80053; 82805; 87040; 87637; 93005; 96361; 96365; 96366; 96375; 99284; 71045; 83605; 83735; 85025; 93010; 99283; J2405; J3480; J7613

== ENCOUNTER 2025-04-15 17:47 | Outpatient (REF) | payer SELFPAY ==
[2025-04-15 20:29] LABS: Anion Gap 9.3 mmol/L (3-11); BUN 14 mg/dL (7-18); CO2 26.7 mmol/L (21.0-32.0); Calcium 9.3 mg/dL (8.5-10.1); Chloride 102 mmol/L (98-107); Estimated GFR 111.34 (mL/min/1.73m2); Glucose 94 mg/dL (74-106); Potassium 3.9 mmol/L (3.5-5.1); Sodium 138 mmol/L (136-145); TSH (W/Ref FT4) 1.39 uIU/mL (0.36-3.74)
== END 2025-04-15 17:48 | disposition home or self-care (01) ==
LOC: NCHCN 17:47
PROVIDERS: Visit Provider Nurse Practitioner Family
DX: R51.9 Headache, unspecified (principal)
CPT/HCPCS: 80048; 84443